=== PATIENT | female | born 1935 | race Caucasian/White ===

== ENCOUNTER 2016-07-07 03:38 | Emergency (ER) | payer MEDICARE, OTHER ==
[2016-07-07 03:55] VITALS: BP 158/88; PULSE 74; TEMP 98; BMI 20.9
--- NOTE | 2016-07-07 04:25 | EDPRACDOC ---
- General Information Chief Complaint: Shoulder Pain Stated Complaint: LT SHOULDER PAIN Time Seen by Provider: 07/07/16 04:23 Information Source: Patient Mode of Arrival: Car Home Medications: Home Medications Cefdinir 300 mg PO DAILY 08/13/13 Hydrocodone/Acetaminophen [Hydrocodon-Acetaminophen 5-325] 1 each PO QID PRN 04/18 Oxycodone HCl/Acetaminophen [Percocet 5-325 mg Tablet] 1 each PO Q6 #14 tablet 07/07/16 Allergies/Adverse Reactions: Allergies Allergy/AdvReac Type Severity Reaction Status Date / Time No Known Allergies Allergy Verified 08/13/13 23:32 - History of Present Illness Onset: 1 day HPI: L shoulder pain h/o bursitis followed by ortho for the same in the past. tonight unable to sleep due to severe pain, presents t the ER by herself requesting percocet. no F/C. pain sharp and worse with palpation and any movement. no weakness or numbness, no neck pain, no recalled trauma. no associated CP, SOB, N/V. Location: Reports: Left Pain Severity: Severe Associated Signs & Symptoms: Denies: Swelling, Numbness, Chest pain, Neck pain, Elbow pain - Treatment Prior to ED Arrival Reported Medications/Treatment FIELD RECRUITER Ibuprofen/Acetaminophen (Dose/ 9 pm 1 gm tylenol Time) ED Past Medical History - History Reviewed Yes Nurses notes reviewed and agree except as marked - Patient Medical History Systemic History: Reports: Cancer (BREAST) EDM Review of Systems - Review of Systems ROS Negative Except as Marked: Yes All systems reviewed and were negative except as marked - Physical Exam Constitutional: Alert (Awake) Oriented to: Time, Person, Place Last recorded Vital Signs: Last Vital Signs Temp 98 F 07/07/16 03:40 Pulse 74 07/07/16 03:40 Resp 18 07/07/16 03:40 BP 158/88 07/07/16 03:40 Pulse Ox 97 07/07/16 03:40 Oxygen Pulse Oxygen Saturation 97 O2 Device Room Air Oxygen Flow Rate Fraction of Inspired Oxygen ( FIO2) - HEENT Head: Normal ( normocephalic) Eye Exam: Normal (PERRL, EOMI, Sclera white) Oropharynx: Normal (Pharynx:Moist without exudate,Gums-no swelling) Tympanic Membrane: Normal ENT EAC: Normal TMJ: Normal Nose: No Symptoms Reported (septum midline) Neck: Normal (FROM, trachea at midline) - Respiratory/Cardiovascular Respiratory: Normal - CTA (BBS clear to auscultation without adventitious sounds ) Cardiovascular: Normal (RRR without murmur, gallop or rub) - GI Auscultation: Normal (NABS) Palpation: Normal (Soft,No rebound or guarding, non distended) Tenderness: Non tender Huerta's Sign: Negative - Musculoskeletal Back: Normal (Non-Tender) Extremities: Other (L shoulder TTP no erythema or swelling. unable to move shoulder 2/2pain, no deformity. no tenderness to clavicle, C spine or elbow with distal N/V intact) - Integumentary Skin: Normal, Warm, Dry Lymphatics: Normal (no adenopathy) - Neurologic Memory Impaired: Normal Motor Function: Normal (Normal tone, Pulses 2+ No cyanosis or edema, FROM) Cranial Nerve: Normal (CN II-X11 intact sensation, strength 5/5) Cerebellar: Normal Mood Description: Normal Perception: Normal - Re-evaluation Re-evaluation 1 Re-evaluation Time: 04:28 (Pt is driving, no narcotics in the ED. Plan d/c home , Rx and f/u her Orthopedc in [place] ) Decision Time to Discharge: 04:29 - Departure Yes I personally saw and evaluated the patient. Disposition: Home Condition: Stable Final Diagnosis: Shoulder pain, left Instructions: RICE Therapy (ED) Education/Counseling Given To: Patient Education/Counseling Given Regarding: Diagnosis, Treatment, Follow Up Referrals: Sawyer Aragon MD [Primary Care Provider] - One Week Prescriptions: New Oxycodone HCl/Acetaminophen [Percocet 5-325 mg Tablet] 1 each PO Q6 #14 tablet No Action Hydrocodone/Acetaminophen [Hydrocodon-Acetaminophen 5-325] 1 each PO QID PRN PRN Reason: Pain Cefdinir 300 mg PO DAILY
== END 2016-07-07 04:38 | disposition home or self-care (01) ==
LOC: ED 03:38
DX: M25.512 Pain in left shoulder (principal)
CPT/HCPCS: 99281

== ENCOUNTER 2016-07-11 00:51 | Emergency (ER) | payer MEDICARE ==
[2016-07-11 01:02] VITALS: BMI 20.8
--- NOTE | 2016-07-11 01:13 | EDPRACDOC ---
- General Information Stated Complaint: ARM PAIN Time Seen by Provider: 07/11/16 00:56 Information Source: Patient Mode of Arrival: Car Home Medications: Home Medications Cefdinir 300 mg PO DAILY 08/13/13 Hydrocodone/Acetaminophen [Hydrocodon-Acetaminophen 5-325] 1 each PO QID PRN 04/18 Oxycodone HCl/Acetaminophen [Percocet 5-325 mg Tablet] 1 each PO Q6 #14 tablet 07/07/16 Allergies/Adverse Reactions: Allergies Allergy/AdvReac Type Severity Reaction Status Date / Time No Known Allergies Allergy Verified 08/13/13 23:32 - History of Present Illness Onset: Today HPI: PT PRESENTS WITH LEFT FOREARM AND HAND SWELLING. SHE WAS SEEN IN THE ER A FEW DAYS AGO FOR LEFT SHOULDER BURSITIS. SINCE THAT TIME SHE HAS KEPT HER ARM IN A DEPENDENT POSITION IN HER BATHROBE WITHOUT MUCH MOTION. SHE HAS AN APPOINTMENT TO SEE HER ORTHOPEDIST ON MONDAY. Location: Reports: Left, Hand Mechanism: Reports: No Injury/Trauma ED Past Medical History - History Reviewed Yes Nurses notes reviewed and agree except as marked - Patient Medical History Systemic History: Reports: Cancer (BREAST) - Social Medical History Lives With: Alone Lives In: Home EDM Review of Systems - Review of Systems ROS Negative Except as Marked: Yes All systems reviewed and were negative except as marked Neurological: Tingling (LEFT HAND.) Musculoskeletal: Forearm (LEFT), Hand (LEFT) - Physical Exam Constitutional: Alert Oriented to: Time, Person, Place Last recorded Vital Signs: Oxygen Pulse Oxygen Saturation O2 Device Oxygen Flow Rate Fraction of Inspired Oxygen ( FIO2) - HEENT Head: negative: Deformity, Laceration Eye Exam: negative: Conjunctival Injection, Pale Conjunctiva Oropharynx: negative: Membranes Dry Neck: negative: Limited ROM - Musculoskeletal Extremities: Radial Pulse (PALPABLE) - Integumentary Skin: Warm, Dry. negative: Rash - Neurologic Memory Impaired: Normal Motor Function: Normal Mood Description: Anxious Thought: Coherent Perception: Normal ED Hand Problem Physical Exam - Musculoskeletal Hand: Swelling (1+ EDEMA.) Wrist: Swelling (1+ EDEMA.) Digit Strength: Normal Nail: Normal Nailbed: Normal Soft Tissue: negative: Drainage Distal Function/Circulation: Normal - Other Exam Other Exam Findings: LEFT HAND WITH STRONG RADIAL PULSES AND WARM TO TOUCH. SENSATION INTACT. INCREASED TENDERNESS OVERLYING MEDIAL LEFT ELBOW WHERE IT HAS BEEN PRESSING AGAINST HER ROBE FOR THE LAST 2 DAYS. - Re-evaluation Re-evaluation 1 Re-evaluation Time: 01:14 SUSPECT THAT PATIENTS SYMPTOMS ARE FROM HOLDING HER LEFT ARM IN A DEPENDENT POSITION FOR THE LAST TWO DAYS WITH PRESSURE ON MEDIAL ASPECT CAUSING NERVE IRRITATION. SHE REPORTS HER LEFT SHOULDER PAIN HAS ALMOST COMPLETELY RESOLVED WITH REST. Decision Time to Discharge: 01:15 - Departure Yes I personally saw and evaluated the patient. Disposition: Home Condition: Stable Final Diagnosis: Left arm pain Instructions: Arm Pain (ED), Paresthesia (ED) Education/Counseling Given To: Patient Education/Counseling Given Regarding: Diagnosis, Treatment, Prognosis, Follow Up Referrals: None,No Provider [Primary Care Provider] - One Week Prescriptions: No Action Hydrocodone/Acetaminophen [Hydrocodon-Acetaminophen 5-325] 1 each PO QID PRN PRN Reason: Pain Cefdinir 300 mg PO DAILY Oxycodone HCl/Acetaminophen [Percocet 5-325 mg Tablet] 1 each PO Q6 #14 tablet Additional Instructions: MAKE SURE TO USE YOUR ARM TOLERATED. IF YOU KEEP YOUR ARM IN A DEPENDENT POSITION IT WILL CONTINUE TO HAVE SOME SWELLING. THE MORE YOU MOVE YOUR HAND AND WRIST THE MORE THE SWELLING WILL DECREASE.
[2016-07-11 01:17] VITALS: BP 149/65; PULSE 76; TEMP 97.9
== END 2016-07-11 01:42 | disposition home or self-care (01) ==
LOC: ED 00:51
DX: M79.602 Pain in left arm (principal)
CPT/HCPCS: 99283